=== PATIENT | female | born 1995 | race African-American/Black ===

== ENCOUNTER 2022-04-14 22:06 | Emergency (ER) | payer OTHER ==
[~2022-04-14] VITALS: Ht 149.9 cm; Wt 68.2 kg
[2022-04-15 00:57] VITALS: BP 127/79
[2022-04-15] MEDS ORDERED: HYDR-4723 PO (01:04)
[2022-04-15] MEDS ORDERED: HYDROCODONE/ACETAMINOPHEN 5-325 MG TABLET PO ONE (01:15)
== END 2022-04-15 01:35 | disposition home or self-care (01) ==
LOC: EMS 22:08
DX: K08.89 Other specified disorders of teeth and supporting structures (principal)
CPT/HCPCS: 99283